=== PATIENT | male | born 2000 | race American Indian/Alaskan Native ===

== ENCOUNTER 2021-01-30 08:00 | Emergency (ER) | payer SELFPAY ==
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
[2021-01-30 08:28] VITALS: BP 118/74
[2021-01-30 08:48] LABS: Basophils % (Auto) 0.4 % (0.0-1.8); Eosinophils # (Auto) 0.1 K/mm3 (0.0-0.4); Eosinophils % (Auto) 2.9 % (0.0-4.3); Hematocrit 42.3 % (35.5-45.6); Lymphocytes # (Auto) 1.7 K/mm3 (1.2-5.4); Lymphocytes % (Auto) 34.7 % (13.4-35.0); Mean Corpuscular HGB Conc 33 % (32-34); Mean Corpuscular Volume 93 fl (84-94); Monocytes # (Auto) 0.5 K/mm3 (0.0-0.8); Platelet Count 200 K/mm3 (140-440); Red Blood Count 4.54 M/mm3 (3.65-5.03); Red Cell Distribution Width 12.6 % (13.2-15.2)
[2021-01-30 09:06] LABS: Bilirubin,Urine NEG (Negative); Blood,Urine NEG (Negative); Color,Urine Yellow (Yellow); Mucus,Urine 2+ /HPF; WBC,Urine < 1.0 /HPF (0.0-6.0)
[2021-01-30 09:06] LABS: Blood Urea Nitrogen 8 mg/dL (9-20); Calcium 8.8 mg/dL (8.4-10.2); Hemolysis Index 20
[2021-01-30 09:08] LABS: BUN/Creatinine Ratio 11
[2021-01-30 09:13] LABS: Amphetamine Screen,Urine Negative; Benzodiazepines Screen,Urine Negative; Cannabinoid Screen,Urine Negative; Cocaine Screen,Urine Negative; Methadone Screen,Urine Negative; Opiate Screen,Urine Negative
[2021-01-30] MEDS ORDERED: LORazepam 2 MG/ML VIAL IM PRN (10:00)
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
[2021-01-30] MEDS ORDERED: HALOPERIDOL LACTATE 5 MG/1 ML INJ IM PRN (12:00)
--- NOTE | 2021-01-31 18:30 | Electrocardiograph Report ---
[facility] Test Date: 2021-01-30 Test Time: 09:01:01 Pat Name: ELSI BA Department: Room: Gender: M Rn Rehabilitation: MJ : 2000 Requested By: AARON CABALLERO Order Number: [id number] Reading MD: Mago Rowe Measurements Intervals [place] Rate: 70 P: 72 NE: 144 QRS: 76 QRSD: 89 T: 59 QT: 363 QTc: 391 Interpretive Statements Marked sinus arrhythmia Otherwise normal ECG No previous ECG available for comparison Electronically Signed On 01-31-2021 18:29:41 EST by Mago Rowe
== END 2021-01-30 13:02 | disposition home or self-care (01) ==
LOC: ED 08:00
DX: F20.9 Schizophrenia, unspecified (principal); F31.9 Bipolar disorder, unspecified; R07.9 Chest pain, unspecified; R05.9 Cough, unspecified; Z20.822 Contact with and (suspected) exposure to COVID-19
CPT/HCPCS: 36415; 80048; 80164; 80307; 81001; 82550; 84443; 85025; 93005; 99284; U0003; 80320; G0480